=== PATIENT | male | born 1990 | race African-American/Black ===

== ENCOUNTER 2024-02-07 02:11 | Emergency (ER) | payer OTHER ==
[2024-02-07 02:17] VITALS: BP 123/66; PULSE 82; RESP 20; TEMP 98; BMI 25.1
[2024-02-07] MEDS ORDERED: ALBUTEROL SO4 2.5/IPRATROPIUM 0.5 INH SOL 3 ML VIAL.NEB. NEB ONE (02:18)
[2024-02-07] MEDS: ALBUTEROL SO4 2.5/IPRATROPIUM 0.5 INH SOL 3 ML VIAL.NEB. NEB ONE (02:21)
[2024-02-07] MEDS ORDERED: guaiFENesin/CODEINE 10 ML UNIT-DOSE CUPS ONE (02:25)
[2024-02-07] MEDS ORDERED: DEXAMETHASONE 4 MG TABLET (FP) ONE (02:25)
[2024-02-07] MEDS: guaiFENesin/CODEINE 10 ML UNIT-DOSE CUPS PO ONE (02:30)
[2024-02-07] MEDS: DEXAMETHASONE 4 MG TABLET (FP) PO ONE (02:30)
[2024-02-07] MEDS ORDERED: AZITHROMYCIN 500 MG TABLET ONE (03:26)
[2024-02-07] MEDS ORDERED: AZITHROMYCIN 250 MG TABLET ONE (03:27)
[2024-02-07] MEDS: AZITHROMYCIN 500 MG TABLET PO ONE (03:28)
== END 2024-02-07 03:35 | disposition home or self-care (01) ==
LOC: FER 02:11
PROC: 3E0F7GC Introduction of Other Therapeutic Substance into Respiratory Tract, Via Natural or Artificial Opening (ICD-10-PCS; principal; 2024-02-07)
DX: R05.9 Cough, unspecified (principal); J18.9 Pneumonia, unspecified organism; Z20.822 Contact with and (suspected) exposure to COVID-19
CPT/HCPCS: 0241U-QW; 71046-TC-FY; 99284-25

== ENCOUNTER 2024-04-17 08:57 | Emergency (ER) | payer OTHER ==
[2024-04-17 09:43] VITALS: TEMP 98.1
[2024-04-17 10:07] VITALS: BMI 24.6
[2024-04-17] MEDS ORDERED: ACETAMINOPHEN 325 MG TABLET (FP) ONE (13:04)
[2024-04-17] MEDS: ACETAMINOPHEN 325 MG TABLET (FP) PO ONE (13:23)
[2024-04-17] MEDS: ACETAMINOPHEN 1000 MG/100 ML BAG IVPB ONE (13:24)
[2024-04-17 13:40] LABS: URINE APPEARANCE CLEAR; URINE BILIRUBIN NEGATIVE (NEGATIVE); URINE COLOR YELLOW; URINE GLUCOSE (UA) NEGATIVE (NEGATIVE); URINE KETONE 2+ (NEGATIVE); URINE LEUK ESTERASE NEGATIVE (NEGATIVE); URINE NITRITE NEGATIVE (NEGATIVE); URINE PROTEIN TRACE (NEGATIVE)
[2024-04-17 13:40] LABS: BASO % 2.2 % (0-2.0); EOS % 4.8 % (0-4.5); HEMATOCRIT 43.8 % (35.4-49); HEMOGLOBIN 14.6 GM/dL (11.7-16.9); LYMPH % 30.4 % (8-40); MCH 31.3 pg (25.7-33.7); MCHC 33.3 g/dl (32.0-35.9); MEAN PLT VOLUME 8.8 fl (7.5-11.1); MONO % 11.7 % (3.8-10.2); NEUT % 50.9 % (42.8-82.8); PLATELET COUNT 229 10^3/uL (134-434); RBC 4.66 M/mm3 (4.00-5.60); WHITE BLOOD COUNT 3.8 K/mm3 (4.0-10.0)
[2024-04-17 13:52] LABS: CALCIUM 9.6 mg/dL (8.5-10.1)
[2024-04-17 13:53] LABS: ALBUMIN 4.7 g/dl (3.4-5.0); BLOOD UREA NITROGEN 11.2 mg/dL (7-18)
[2024-04-17 13:55] VITALS: BP 129/76; PULSE 54; RESP 18
[2024-04-17 13:56] LABS: CREATININE 1.1 mg/dL (0.55-1.3)
[2024-04-17 13:57] LABS: BILIRUBIN,TOTAL 0.8 mg/dL (0.2-1)
[2024-04-17 13:58] LABS: TOT PROT 8.6 g/dl (6.4-8.2)
[2024-04-17] MEDS ORDERED: morphine SULFATE 4 MG/ML VIAL ONE (14:13)
[2024-04-17] MEDS: morphine SULFATE 4 MG/ML VIAL IVPUSH ONE (14:21)
[2024-04-17 14:48] LABS: HIV INTERPRETATION NEGATIVE (NEGATIVE)
== END 2024-04-17 15:50 | disposition home or self-care (01) ==
LOC: JER 08:57
PROC: 3E033NZ Introduction of Analgesics, Hypnotics, Sedatives into Peripheral Vein, Percutaneous Approach (ICD-10-PCS; principal; 2024-04-17)
DX: R10.31 Right lower quadrant pain (principal)
CPT/HCPCS: 36415; 74176-TC; 76870-TC; 80053; 81003; 82272; 83605; 85025; 86803; 87086; 87389; 99285-25

== ENCOUNTER 2024-05-15 00:59 | Emergency (ER) | payer OTHER ==
[2024-05-15 01:11] VITALS: BP 151/83; PULSE 75; RESP 18; BMI 24.3
[2024-05-15] MEDS ORDERED: ACETAMINOPHEN 500 MG TABLET (FP) ONE (01:12)
[2024-05-15] MEDS: ACETAMINOPHEN 500 MG TABLET (FP) PO ONE (01:17)
[2024-05-15 02:48] VITALS: TEMP 99.2
== END 2024-05-15 03:01 | disposition home or self-care (01) ==
LOC: JER 00:59
DX: R05.9 Cough, unspecified (principal); R51.9 Headache, unspecified; J02.9 Acute pharyngitis, unspecified; R50.9 Fever, unspecified; R11.10 Vomiting, unspecified; J06.9 Acute upper respiratory infection, unspecified; Z20.822 Contact with and (suspected) exposure to COVID-19
CPT/HCPCS: 0241U-QW; 99283-25